=== PATIENT | female | born 1975 | race Caucasian/White ===

== ENCOUNTER 2020-07-14 18:28 | Emergency (ER) | payer OTHER ==
[2020-07-14 18:37] VITALS: BP 149/70; PULSE 64; BMI 33.2
[2020-07-14] MEDS ORDERED: IBUPROFEN 600 MG TABLET (FP) PO ONE ×2 (19:27→19:56)
== END 2020-07-14 22:08 | disposition home or self-care (01) ==
LOC: JERFT 18:28
DX: S32.2XXA Fracture of coccyx, initial encounter for closed fracture (principal)
CPT/HCPCS: 72220-TC-FY; 99283-25